=== PATIENT | male | born 1985 | race Caucasian/White ===

== ENCOUNTER → 2017-04-30 | Outpatient (CLI) | payer BC ==
[2017-04-30 20:03] LABS: LYME DISEASE AB IGG NEG (NEG); LYME DISEASE AB IGM NEG (NEG)
== END | disposition home or self-care (01) ==
LOC: C.LAB 16:22
PROVIDERS: ATTEND Physician Assistant Medical
DX: R53.83 Other fatigue (principal)

== ENCOUNTER → 2017-09-06 | Outpatient (CLI) | payer BC ==
[2017-09-06 11:18] LABS: THYROID STIMULATING HORMONE 1.6 uIu/ml (0.300-4.500)
== END | disposition home or self-care (01) ==
LOC: C.LABBC 09:17
PROVIDERS: ATTEND Nurse Practitioner Adult Health
DX: R53.83 Other fatigue (principal)